=== PATIENT | male | born 1995 | race American Indian/Alaskan Native ===

== ENCOUNTER 2016-08-22 15:34 | Emergency (ER) | payer SELFPAY ==
[~2016-08-22 15:34] MED LIST: ERYTHROCIN STE500 M1 PO; FLEXERIL10 M1 PO; IBUPROFEN800 MG PO; LIDOCAINE VISCOU1 ML PO; MEDROL DOSEPAK4 MG DOB; PHENERGAN25 MG PO; ZITHROMAX PO
[2016-08-22 16:08] LABS: URINE SOURCE CLEAN CATCH
[2016-08-22 16:12] LABS: URINE APPEARANCE CLEAR; URINE BILIRUBIN NEG (NEG); URINE BLOOD NEG (NEG); URINE COLOR YELLOW; URINE GLUCOSE NEG (NEG); URINE KETONE NEG (NEG); URINE LEUKOCYTE ESTERASE NEG (NEG); URINE NITRATE NEG (NEG); URINE PH 7.5 (5-8); URINE PROTEIN NEG (NEG); URINE SPECIFIC GRAVITY 1.017 (1.003-1.035)
[2016-08-22 16:18] LABS: CULTURE INDICATED? NO
[2016-08-25 02:43] LABS: CHLAMYDIA TRACH Not Detected (Not Detected); N GONOR Not Detected (Not Detected)
== END 2016-08-22 16:50 | disposition home or self-care (01) ==
LOC: CED 15:34 → CFTX 16:10 → CED 16:10 → CFTX 16:50
PROVIDERS: Physician Assistant
DX: Z20.2 Contact with and (suspected) exposure to infections with a predominantly sexual mode of transmission (principal); R30.0 Dysuria; T68.XXXA Hypothermia, initial encounter; Z88.0 Allergy status to penicillin; F17.210 Nicotine dependence, cigarettes, uncomplicated; Z91.030 Bee allergy status
CPT/HCPCS: 36415; 81003; 86592; 86780; 87491; 87591; 96372; 99283; J0696